=== PATIENT | female | born 1975 | race Caucasian/White ===

== ENCOUNTER 2021-10-08 01:06 | Emergency (ER) | payer BC, OTHER ==
[~2021-10-08] VITALS: Ht 167.7 cm; Wt 50.8 kg
[~2021-10-08 01:06] MED LIST: ACHYD1T PO; CEPH250T PO; CETI10CA PO; DIPH25TA82 PO; EPIN0.3P2 IM; FAMO20TA5 PO; FEXO30TA17 PO; HYDR1TAB75 PO; HYDR25CA5 PO; MULT-298 PO; PRD50T PO; PREN1TAB39 PO; PRM50SU PR
[2021-10-08 01:17] VITALS: BP 95/67
[2021-10-08 01:32] LABS: BILIRUBIN,URINE NEGATIVE (NEGATIVE); CLARITY,URINE CLEAR; COLOR,URINE YELLOW; GLUCOSE, URINE (UA) NEGATIVE (NEGATIVE); KETONES,URINE NEGATIVE (NEGATIVE); LEUKOCYTE ESTERASE ,URINE NEGATIVE (NEGATIVE); NITRITE,URINE NEGATIVE (NEGATIVE); PROTEIN,URINE NEGATIVE (NEGATIVE)
[2021-10-08 01:43] LABS: BACTERIA,URINE NEGATIVE /HPF; SQUAMOUS EPITHELIAL CELL,UR 0-2 /HPF
[2021-10-08] MEDS ORDERED: TMSL.4C PO (02:07)
--- NOTE | 2021-10-08 02:07 | ED GU-Female ---
General Chief Complaint: - Reproductive Stated Complaint: CAN'T URINATE FOR 2 HRS Source: patient History of Present Illness Date Seen by Provider: Oct 08, 2021 Time Seen by Provider: 01:20 Initial Comments PT ARRIVES VIA POV STATES SHE HAS NOT BEEN ABLE TO URINATE FOR THE LAST 2 HOURS C/O MUCH PAIN OVER BLADDER AND NEED TO URINATE, BUT IS UNABLE TO PT STATES SHE HAS BEEN ABLE TO URINATE FINE ALL DAY, AND THEN SUDDENLY SHE WAS UNABLE TO NO PAIN ON URINATION AT ANY TIME NO NAUSEA/VOMITING NO BACK PAIN NO FEVER PT STATES THIS IS A FREQUENT PROBLEM--STATES SHE HAS THIS ABOUT ONCE A MONTH, FOR THE LAST 2-3 YEARS STATES SHE HAS TO HAVE A CATHETER FOR A COUPLE OF DAYS AND THEN SHE IS FINE FOR A FEW WEEKS STATES IT ALWAYS COMES ON SUDDENLY STATES SHE HAS NEVER SEEN A UROLOGIST AT ANY TIME, HAS NEVER BEEN PRESCRIBED ANY MEDICATIONS FOR HER BLADDER PT ONLY TAKES VITAMINS, SHE HAS HAD PRIOR GASTRIC SLEEVE SURGERY DOES NOT TAKE ANY PRESCRIPTION MEDICATIONS LMP--END OF LAST WEEK. HAS HAD BTL PT IS HERE VISITING FROM [place], [place], AND WILL BE HERE FOR THE NEXT 2 WEEKS Allergies and Home Medications Allergies Coded Allergies: metronidazole (Unverified Allergy, Mild, RASH, 09/20/10) Patient Home Medication List Home Medication List Reviewed: Yes Hydrocodone Bit/Acetaminophen ([place] Plus 10/325 Mg) 1 Tab Tablet, 1-2 TAB PO Q3HR PRN, (Reported) Entered as Reported by: SINAN MCKEON on 08/07/11 1719 Multivitamins/Iron/Folic Acid (Multi Complete-Iron Tablet) 1 Each Tablet, 1 EACH PO DAILY, (Reported) Entered as Reported by: ROB GARCIA on 08/03/11 1155 Tamsulosin HCl (Flomax) 0.4 Mg Cap, 0.4 MG PO DAILY Prescribed by: CARMEN SOLORIO on 10/08/21 0207 Review of Systems Review of Systems Constitutional: no symptoms reported Gastrointestinal: no symptoms reported Genitourinary: see HPI Past [id number] Hx Patient Social History Tobacco Use?: No Substance use?: No Alcohol Use?: Yes Alcohol Frequency: Once in a while Past Medical History Surgeries: Yes (GASTRIC SLEEVE; D&C; BTL) Abdominal, Tubal Ligation Respiratory: No Cardiac: No Neurological: No Reproductive Disorders: No 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 oz. kg; BMI Method:Stated General Appearance: thin, other (PACING, STANDING ON SIDE OF BED AND LEANING OVER IT, ETC. LOOKS UNCOMFORTAB LE) Cardiovascular: regular rate, rhythm, no murmur Respiratory: normal breath sounds Gastrointestinal: tenderness (OVER LOWER ABDOMEN WITH DISTENDED BLADDER) Extremities: normal inspection Neurologic/Psychiatric: no motor/sensory deficits, alert, oriented x 3 Skin: normal color, warm/dry Progress/Results/Core Measures Suspected Sepsis SIRS Temperature: Pulse: Respiratory Rate: Blood Pressure / Mean: Results/Orders Lab Results Laboratory Tests Test 10/08/21 01:00 10/08/21 01:25 Range/Units Urine Opiates Screen NEGATIVE NEGATIVE Urine Oxycodone Screen NEGATIVE NEGATIVE Urine Methadone Screen NEGATIVE NEGATIVE Urine Propoxyphene Screen NEGATIVE NEGATIVE Urine Barbiturates Screen NEGATIVE NEGATIVE Ur Tricyclic Antidepressants Screen NEGATIVE NEGATIVE Urine Phencyclidine Screen NEGATIVE NEGATIVE Urine Amphetamines Screen NEGATIVE NEGATIVE Urine Methamphetamines Screen NEGATIVE NEGATIVE Urine Benzodiazepines Screen NEGATIVE NEGATIVE Urine Cocaine Screen NEGATIVE NEGATIVE Urine Cannabinoids Screen NEGATIVE NEGATIVE Urine Color YELLOW Urine Clarity CLEAR Urine pH 6.0 5-9 Urine Specific [place] 1.010 L 1.016-1.022 Urine Protein NEGATIVE NEGATIVE Urine Glucose (UA) NEGATIVE NEGATIVE Urine Ketones NEGATIVE NEGATIVE Urine Nitrite NEGATIVE NEGATIVE Urine Bilirubin NEGATIVE NEGATIVE Urine Urobilinogen 0.2 < = 1.0 MG/DL Urine Leukocyte Esterase NEGATIVE NEGATIVE Urine RBC (Auto) NEGATIVE NEGATIVE Urine RBC NONE /HPF Urine WBC NONE /HPF Urine Squamous Epithelial Cells 0-2 /HPF Urine Crystals NONE /LPF Urine Bacteria NEGATIVE /HPF Urine Casts NONE /LPF Urine Mucus NEGATIVE /LPF Urine Culture Indicated NO My Orders Orders - CARMEN SOLORIO DO Urine Bedside (10/08/21 01:25) Catheter(Urinary) Insert & Ass 03,15 (7/6/22 01:25) Ua Culture If Indicated (10/08/21 01:25) Tamsulosin Capsule (Flomax Capsule) (10/08/21 02:15) Drug Screen Stat (Urine) (10/08/21 02:09) Vital Signs/I&O Capillary Refill : Progress Note : Progress Note M[facility] PLACED WITH IMMEDIATE RELIEF AND RETURN OF AT LEAST 1000 ML OF CLEAR URINE. PT WILL BE HERE FOR THE NEXT 2 WEEKS, WILL REFER TO DR. HASSAN ALSO STRESSED THE IMPORTANCE OF ESTABLISHING WITH A UROLOGIST IN [place], WHEN SHE GETS BACK HOME, FOR ONGOING UROLOGY CARE Departure Impression Primary Impression: Acute urinary retention Disposition: HOME, SELF-CARE Condition: Improved Departure-Patient Inst. Decision time for Depature: 02:05 Referrals: NO,LOCAL PHYSICIAN (PCP) Primary Care Physician BRITANY HASSAN MD Patient Instructions: [place] Catheter, Urinary Tract Infection, Adult (DC) Add. Discharge Instructions: [facility] CARE INSTRUCTED FOLLOW UP WITH DR. HASSAN THIS WEEK FOR FURTHER CARE--CALL IN THE MORNING TO SCHEDULE APPOINTMENT All discharge instructions reviewed with patient and/or family. Voiced understanding. Scripts Tamsulosin HCl (Flomax) 0.4 Mg Cap 0.4 MG PO DAILY, #10 CAP Prov: CARMEN SOLORIO DO 10/08/21 CARMEN SOLORIO DO Oct 08, 2021 02:07
[2021-10-08] MEDS ORDERED: TAMSULOSIN 0.4 MG (FLOMAX) CAP PO SCH (02:15)
[2021-10-08 02:36] LABS: AMPHETAMINE SCREEN, URINE NEGATIVE (NEGATIVE); BARBITURATE SCREEN URINE NEGATIVE (NEGATIVE); BENZODIAZEPINES SCREEN URINE NEGATIVE (NEGATIVE); CANNABINOID SCREEN, URINE NEGATIVE (NEGATIVE); COCAINE SCREEN URINE NEGATIVE (NEGATIVE); METHADONE STAT NEGATIVE (NEGATIVE); OPIATE SCREEN URINE NEGATIVE (NEGATIVE); OXYCODONE STAT NEGATIVE (NEGATIVE); PROPOXYPHENE STAT NEGATIVE (NEGATIVE); TRICYCLIC ANTIDEPRESSANTS SCRE NEGATIVE (NEGATIVE)
== END 2021-10-08 02:17 | disposition home or self-care (01) ==
LOC: EDUNIT# 01:06 → ER 01:11
DX: R33.9 Retention of urine, unspecified (principal); E66.9 Obesity, unspecified; Z98.84 Bariatric surgery status; Z79.899 Other long term (current) drug therapy
CPT/HCPCS: 51702; 80306; 81000; 84703